=== PATIENT | female | born 1960 | race Caucasian/White ===

== ENCOUNTER → 2017-01-31 | Day surgery (SDC) | payer OTHER ==
[~2017-01-31] MED LIST: BUPIVACAINE HCL PF 0.5% 10 ML VIAL ONE; CLINDAMYCIN PHOS 900 MG/6 ML VIAL ONE; COZA50TA PO; DIPH2%T PO; GLUCTAB PO; ISOSULFAN BLUE 50 MG/5 ML VIAL SQ ONE; KETOROLAC TROMETHAMINE 30 MG/ML (IVP) VIAL ONE; LACTATED RINGER'S 1000 ML INJ 1,000 ML ONE; METO25 PO; MIDAZOLAM HCL 2 MG/2 ML VIAL ONE; ONDANSETRON HCL 4 MG/2 ML VIAL IV PUSH ONE; PROBCAP4 PO; PROPOFOL 200 MG/20 ML AMP IV ONE; PROT40TA PO; SODIUM CHLORIDE 0.9% INJ 10 ML ONE; XYZA5TAB2 PO; oxyCODONE/ACETAMINOPHEN 5 MG/325 MG TAB ONE
--- NOTE | 2017-01-31 15:39 | TN ---
cc: MIREILLE STILL DATE OF SURGERY: 01/31/2017 PREOPERATIVE DIAGNOSIS Right breast cancer. POSTOPERATIVE DIAGNOSIS Right breast cancer. PROCEDURE PERFORMED 1. Right breast needle-localized lumpectomy. 2. Right axillary sentinel lymph node biopsy. SURGEON Mireille Still ANESTHESIA General via LMA device. INDICATION The patient is a 56-year-old female with a newly diagnosed clinical stage I right breast cancer. She has opted for breast conservation and now presents for the procedure. FINDINGS At the time of surgery two sentinel lymph nodes were identified. #1 was not blue and had a count of 968 and #2 was 1+ blue with a count of 102. Touch prep was not performed. Specimen mammogram did demonstrate the density and the biopsy clip was within the excised tissue. PROCEDURE After informed consent was obtained and site verification was performed, the patient was brought to the radiology suite where she underwent needle localization of her mass as well as peritumoral radionuclide injection. She was then brought to the major operating room where she underwent general anesthesia via an LMA device. She was given a single dose of clindamycin due to penicillin allergy and sequential compression hose were not used. The right breast and arm were prepped and draped in sterile fashion. 3 cc of half-strength Lymphazurin were injected in the subareolar right breast and a five-minute massage was performed. An incision was created at the inferior aspect of the right axillary hairline after anesthetizing with 0.5% Marcaine plain. The clavipectoral fascia was then divided using electrocautery and the level I axilla was entered. There were two mid level I fairly superficial lymph nodes and one was enlarged. Both lymph nodes were circumferentially dissected free from surrounding structures using the Harmonic scalpel and had the counts as noted. The background count in the axilla was 14. Some adjacent axillary tissue was removed and sent for permanent pathologic evaluation. Good hemostasis was noted and the wound was closed using interrupted 3-0 Vicryl subcutaneous suture and a 4-0 Monocryl subcuticular suture. Attention was then turned to the right breast where the lesion had been identified at 10 o'clock 5 cm from the nipple, however, the wire within the 8 o'clock location heading superiorly. A periareolar skin incision was anesthetized with 0.5% Marcaine plain and incised sharply. Both sharp and electrocautery dissection were then performed until the wire entry point through the skin was identified and secured with a hemostat. The wire was cut off at the skin with pin cutters and a 2-0 silk transfixion suture was placed at the wire entry point into the breast tissue. Both sharp and circumferential dissection were then performed around the wire and the specimen was oriented with two sutures laterally, one long suture anteriorly, and one short suture superiorly. The specimen was sent to mammography with the findings as noted and was then sent for permanent pathologic evaluation. The lateral and anterior margins appeared close and each of these was sharply re-excised with a stitch on the new margin. Good hemostasis was obtained using electrocautery and the wound was closed using interrupted 3-0 Vicryl subcutaneous sutures and a 4-0 Monocryl subcuticular suture. Steri-Strips and a sterile dressing were applied. MD ENMA Lorenz/LELAND /3:21 PM /3:36 PM
== END | disposition home or self-care (01) ==
LOC: ESDC 09:39
PROVIDERS: ATTEND Surgery
DX: C50.911 Malignant neoplasm of unspecified site of right female breast (principal)
CPT/HCPCS: 00400; 01610; 19125; 38525; 38792; 88305; 88307; J1885; J2250; J2405; J3010; J7120; Q9968